=== PATIENT | female | born 2005 | race Caucasian/White ===

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

== ENCOUNTER 2024-07-07 19:57 | Emergency (ER) | payer OTHER, BC, SELFPAY ==
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
[2024-07-07 19:57] VITALS: BP 131/88; PULSE 97; RESP 18; TEMP 36.5; O2SAT 100
--- OUTSIDE RECORDS SUMMARY | 2024-07-07 20:02 | XMS_ITS | Clinical Summary ---
Author Organization [facility] Address [address] [place] [address] Care Team Providers Care Glass Science Engineer Name Role Phone Denisa Manuel MD Primary Care Provider [phone] Source Comments [facility],non-owned Affiliates and Associated Physician Practices is amultiple site organization consisting of ambulatory clinics and hospital sitesin [place], [place], [place] and [place]. This disclosure is being madepursuant to the Care Everywhere program and may not contain all information available regarding this patient. Last updated 17.[facility] [employer] Allergies No known active allergies Medications * Be aware that medications may not be up to date on this document. Alwaysverify current medications with the patient. acetaminophen (TYLENOL) 100 MG/ML solution Take by mouth every 4 hours as needed for Fever and Pain. Active phenazopyridine (PYRIDIUM) 10 mg/ml Take 6 mL by mouth 3 times daily as needed for Pain. 60 ml 0 06/27/2009 Active sulfamethoxazole -trimethoprim (BACTRIM;SEPTRA) 200-40 MG/5ML suspension Take 5 mL by mouth 2 times daily. 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 Gender Identity Not on file Sexual Orientation Not on file Last Filed Vital Signs Vital Sign Reading Time Taken Comments Blood Pressure 106/72 06/26/2009 10:45 PM CDT Pulse 88 06/27/2009 12:55 AM CDT Temperature 36.3 C (97.3 F) 06/27/2009 12:55 AM CDT Respiratory Rate 24 06/27/2009 12:55 AM CDT Oxygen Saturation - - Inhaled Oxygen Concentration - - Weight 16.1 kg (35 lb 7.9 oz) 06/26/2009 11:00 P M CDT Height - - Body Mass Index - - Plan of Treatment Health Maintenance Due Date Last Done Comments HIV SCREENING 08/05/2019 HPV VACCINE (1 - 3-dose series) 08/05/2019 CHLAMYDIA/GONORRHEA SCREENING 2020 MENINGOCOCCAL (Group B) VACC INE SHARED DECISION-MAKING (1 of 2 - Standard) 2020 HEPATITIS C SCREENING 07/31/2022 DTAP/TDAP/TD VACCINES (1 - Tdap) 08/05/2023 HEPATITIS B VACCINE (1 of 3 - 19+ 3-dose series) 08/05/2023 COVID-19 VACCINE (1 - 2023-2 5 season) 2023 DEPRESSION SCREENING 02/10/2024 INFLUENZA VACCINE (Season Ended) 2024 ZOSTER VACCINE (1 of 2) 2054 HIB VACCINE Aged Out No longer eligi ble based on patient's age to complete this topic MENINGOCOCCAL GROUPS A/C/Y/W VACCINE Aged Out No longer eligible b ased on patient's age to complete this topic PNEUMOCOCCAL VACCINE Aged Out No long er eligible based on patient's age to complete this topic Insurance [facility] Care Teams Glass Science Engineer Relationship Specialty Start Date End Date Denisa Manuel MD [address] [place] [id number] PCP - General 06/07/09
--- OUTSIDE RECORDS SUMMARY | 2024-07-07 20:02 | XMS_ITS | Clinical Summary ---
Author Organization [facility] Address [address] [place] [address] Phone Care Team Providers Care Counselor At Law Name Role Phone Denisa Manuel MD Primary Care Provider [phone] Allergies No known active allergies Medications pediatric multivitamin no.42 (CHILDREN'S MULTIVITAMIN ORAL) Take by mouth. Activ e midazolam (Nayzilam) 5 mg/spray (0.1 mL) [place], Non-AerosolIndic ations:Generaliz ed convulsive epilepsy with intractable epilepsy (CMS/HCC) Administer 1 Applicator in each nostril one time as needed for Other (See Comment) (Seizure > 5 min). 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 900 mL 08/25/19 24 Active rizatriptan (MAXALT INVASIVE PHYSICIAN) 10 mg Tablet, Rapid DissolveIndicati ons:Migraine without aura and without status migrainosus, not intractable Place 1 Tablet (10 mg) inside cheek see administration instructions. 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 Nocturnal enuresis 07/19/2010 Resolved Problems Problem Noted Date Diagnosed Date Resolved Date Seizure disorder 08/22/2010 09/12/2010 Encounters Date Type Department Care Team Description 06/30/2024 External Device Data [facility] ABSTRACTION Provider, Abstract 06/30/2024 External Device Data [facility] ABSTRACTION Provider, Abstract 06/29/2024 External Device Data [facility] ABSTRACTION Provider, Abstract 06/29/2024 External Device Data [facility] ABSTRACTION Provider, Abstract 06/28/2024 External Device Data [facility] ABSTRACTION Provider, Abstract 05/24/2024 External Device Data [facility] ABSTRACTION Provider, Abstract 04/27/2024 External Device Data [facility] ABSTRACTION Provider, Abstract 04/27/2024 External Device Data [facility] ABSTRACTION Provider, Abstract 04/16/2024 External Device Data [facility] ABSTRACTION Provider, Abstract 04/15/2024 External Device Data [facility] ABSTRACTION Provider, Abstract 04/12/2024 External Device Data [facility] ABSTRACTION Provider, Abstract from Last 3 Months Family History Medical History Relation Name Comments Healthy Brother Healthy Father Healthy Maternal Grandfather Healthy Maternal Grandmother Healthy Mother Taylor Diabetes Paternal Grandfather Hypertension Paternal Grandfather Healthy Paternal Grandmother Relation Name Status Comments Brother Alive Father Alive Maternal Grandfather Alive Maternal Grandmother Alive Mother Taylor Alive Paternal Grandfather Alive Paternal Grandmother Alive Social History Tobacco Use Types Packs/Day Years Used Date Smoking Tobacco: Never Smokeless Tobacco: Never Tobacco Cessation:Counseling Given: Not Answered Alcohol Use Standard Drinks/Week Comments No 0 (1 standard drink = 0.6 oz pur e alcohol) Comments No Sex and Gender Information Value Date Recorded Sex Assigned at Not on file Legal Sex Female 5:52 AM PROFESSIONAL ATHLETE Gender Identity Not on file Sexual Orientation Not on file Occupation Industry Job Start Date Job End Date Not on file Not on file Not on file Not on file Last Filed Vital Signs Vital Sign Reading Time Taken Comments Blood Pressure 105/67 08/25/2023 1:34 PM CDT Pulse 85 08/25/2023 1:34 PM CDT Temperature 36.9 C (98.4 F) 11/27/2013 10:14 AM CDT Respiratory Rate 24 11/27/2013 10:14 AM CDT Oxygen Saturation 97% 08/25/2023 1:34 PM CDT Inhaled Oxygen Concentration - - Weight 54.6 kg (120 lb 6.4 oz) 08/25/2023 1:34 P M CDT Height 160 cm (5' 3) 08/25/2023 1:34 PM CDT Head Circumference 54.5 cm 05/15/2021 2:18 PM CDT Body Mass Index 21.33 08/25/2023 1:34 PM CDT Plan of Treatment Upcoming Encounters Date Type Department Care Team (Late st Contact Info) Description 08/25/2024 11:00 AM CDT Office Visit [facility] [id number] [place] [address] Otto Meza MD [address] [place] [address] Health Maintenance Due Date Last Done Comments CHLAMYDIA SCREENING (ANNUAL) 11-24 YEARS 08/05/2015 HPV VACCINES (1 - 3-dose series) 08/05/2019 INFLUENZA VACCINE (#1) 2023 11/12/2022 DTAP/TDAP/TD VACCINES (7 - T d or Tdap) 08/06/2025 08/07/2015, 08/22/2009, 10/29/2005, Additional history exists HEPATITIS B VACCINES Completed 08/05/2005, 2004, 2004 Medical Devices Implanted Type Area Body Sander Device Identifier Shelf Expiration Date Model / Serial / Lot Tube Vent Collar Button Ultrasil [id number] - [id number] Implanted:Qty: 1 on 03/21/2013 by Wilfrid Benjamin MD at [facility] Ear Bilateral : Ear [facility] 01/09/2023 [id number] / / [id number] Insurance [email or web address] BLUE ACCESS/TRUE BLUE PPO [employer] BLUE ACCESS/TRUE BLUE PPO Advance Directives For more information, please contact: [phone] * Full Code (Latest Code Status on File) Date Activated Date Inactivated Comments 03/21/2013 12:34 PM 03/21/2013 9:45 PM * Full Code Date Activated Date Inactivated Comments 03/21/2013 12:30 PM 03/21/2013 12:34 PM * Full Code Date Activated Date Inactivated Comments 03/21/2013 11:40 AM 03/21/2013 12:30 PM * Full Code Date Activated Date Inactivated Comments 07/27/2009 12:18 PM 07/27/2009 4:34 PM Care Teams Counselor At Law Relationship Specialty Start Date End Date Denisa Manuel MD [address] [place] [phone] PCP - General Pediatrics 09/11/17
[2024-07-07] MEDS: IBUPROFEN 400 MG TABLET PO (20:25)
--- NOTE | 2024-07-07 20:29 | PC.NURSE ---
patient medicated per order, see MAR. given warm blanket for comfort and now to imaging via stretcher per structural steel trades worker. mother and boyfriend at bedside.
--- OUTSIDE RECORDS SUMMARY | 2024-07-07 20:46 | XMS_ITS | Clinical Summary ---
Author Organization [facility] Address [address] [address] Care Team Providers Care Satellite Communications Operator Name Role Phone Denisa Manuel MD Primary Care Provider [phone] Source Comments [facility],non-owned Affiliates and Associated Physician Practices is amultiple site organization consisting of ambulatory clinics and hospital sitesin [place], [place], [place] and [place]. This disclosure is being madepursuant to the Care Everywhere program and may not contain all information available regarding this patient. Last updated 17.[facility] [employer] Allergies No known active allergies Medications * [...] on file Legal Sex Female 5:44 AM ULTRASOUND COORDINATOR Gender Identity Not on file Sexual Orientation [...] patient's age to complete this topic Insurance [facility] Care Teams Satellite Communications Operator Relationship Specialty Start Date End Date Denisa Manuel MD [address] [place] [id number] PCP - General 06/07/09
--- OUTSIDE RECORDS SUMMARY | 2024-07-07 20:46 | XMS_ITS | Clinical Summary ---
Author Organization [facility] Address [address] [place] [address] Phone Care Team Providers Care Mule Operator Name Role Phone Denisa Manuel MD Primary Care Provider [phone] Allergies No known active allergies Medications pediatric multivitamin no.42 (CHILDREN'S MULTIVITAMIN ORAL) Take by mouth. 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 Gender Identity Not on file Sexual Orientation [...] Description 08/25/2024 11:00 AM CDT Office Visit [facility] [id number] [place] [address] Otto Meza MD [address] [facility] [address] [place] [address] Health Maintenance Due Date Last Done Comments CHLAMYDIA SCREENING (ANNUAL) 11-24 YEARS 08/05/2015 HPV VACCINES (1 - 3-dose series) 08/05/2019 INFLUENZA VACCINE (#1) 2023 11/12/2022 DTAP/TDAP/TD VACCINES (7 - T d or Tdap) 08/06/2025 08/07/2015, 08/22/2009, 10/29/2005, Additional history exists HEPATITIS B VACCINES Completed 08/05/2005, 2004, 2004 Medical Devices Implanted Type Area Crochet Machine Operator Device Identifier Shelf Expiration Date Model / Serial / Lot Tube Vent Collar Button Ultrasil [id number] - [id number] Implanted:Qty: 1 on 03/21/2013 by Wilfrid Benjamin MD at [facility] Ear Bilateral : Ear [facility] 01/09/2023 [id number] / / [id number] Insurance [employer] BLUE ACCESS/TRUE BLUE PPO [employer] BLUE ACCESS/TRUE BLUE PPO Advance Directives For more information, please contact: [phone] * Full Code (Latest Code Status on File) Date Activated Date Inactivated Comments 03/21/2013 12:34 PM 03/21/2013 9:45 PM * Full Code Date Activated Date Inactivated Comments 03/21/2013 12:30 PM 03/21/2013 12:34 PM * Full Code Date Activated Date Inactivated Comments 03/21/2013 11:40 AM 03/21/2013 12:30 PM * Full Code Date Activated Date Inactivated Comments 07/27/2009 12:18 PM 07/27/2009 4:34 PM Care Teams Mule Operator Relationship Specialty Start Date End Date Denisa Manuel MD [address] [place] [phone] PCP - General Pediatrics 09/11/17
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
[2024-07-07 21:10] VITALS: BP 130/86; PULSE 94; RESP 16; O2SAT 100
== END 2024-07-07 21:10 | disposition home or self-care (01) ==
PROVIDERS: Emergency Provider Emergency Medicine; PCP Nurse Practitioner
DX: S46.911A Strain of unspecified muscle, fascia and tendon at shoulder and upper arm level, right arm, initial encounter (principal); V89.2XXA Person injured in unspecified motor-vehicle accident, traffic, initial encounter
CPT/HCPCS: 73030; 99283; A9270